=== PATIENT | male | born 1990 | race Caucasian/White ===

== ENCOUNTER 2018-11-24 20:40 | Emergency (ER) | payer MEDICAID ==
[~2018-11-24] VITALS: Wt 73.1 kg
[~2018-11-24 20:40] MED LIST: ACET1TAB40 PO; BACTDS PO; CEPH-443 PO
[2018-11-24 21:20] VITALS: BP 145/79; PULSE 72; RESP 18
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
[2018-11-25] MEDS ORDERED: IBUP800T48 PO (03:07)
[2018-11-25] MEDS ORDERED: IBUPROFEN 800 MG TAB PO ONE (03:30)
== END 2018-11-25 03:37 | disposition home or self-care (01) ==
LOC: FTE 20:40
DX: T40.7X1A Poisoning by cannabis (derivatives), accidental (unintentional), initial encounter (principal); R07.9 Chest pain, unspecified
CPT/HCPCS: 70450; 71046; 72125; 80307; Z7502; Z7610